=== PATIENT | male | born 1990 | race Caucasian/White ===

== ENCOUNTER 2023-01-11 01:55 | Outpatient (CLI) | payer BC, SELFPAY ==
--- OUTSIDE RECORDS SUMMARY | 2023-01-11 01:56 | XMS_ITS | Continuity of Care Document ---
Author Name Unknown Organization [facility] Address [address] [place] [address] Phone [phone] Care Team Providers Care Director Nicu Name Role Phone Indio Wood NP Care Team Information Recei geri Unavailable MARY ACOSTA MD Care Team Information Re ceiver Unavailable Indio Wood NP Primary Care Physician Unav ailable
[2023-01-11 12:46] LABS: Anion Gap 8.4 mmol/L (3-11); BUN 13 mg/dL (7-18); CO2 27.6 mmol/L (21.0-32.0); CREATININE 0.9 mg/dL (0.70-1.30); Calcium 9.6 mg/dL (8.5-10.1); Calculated LDL 146 mg/dL (<100); Chloride 103 mmol/L (98-107); Cholesterol 212 mg/dL (<200); Estimated GFR 116.37 (mL/min/1.73m2); Glucose 113 mg/dL (74-106); HDL Cholesterol 46 mg/dL (40-60); Potassium 4.2 mmol/L (3.5-5.1); Sodium 139 mmol/L (136-145); Triglyceride 102 mg/dL (<150)
[2023-01-11 12:50] LABS: Hemoglobin A1C 5.5 % (<5.7)
[2023-01-14 11:50] LABS: Testosterone, Total 327 ng/dL (240-950)
== END 2023-01-11 01:56 | disposition home or self-care (01) ==
LOC: LOS 01:55
PROVIDERS: PCP Nurse Practitioner Family; Visit Provider Nurse Practitioner Family
DX: E78.5 Hyperlipidemia, unspecified (principal); N52.9 Male erectile dysfunction, unspecified
CPT/HCPCS: 36415; 80048; 80061; 84403; 83036; 84443

== ENCOUNTER 2025-01-20 14:22 | Outpatient (CLI) | payer BC, SELFPAY ==
[2025-01-20 16:16] LABS: HCT 42.4 % (40.0-50.0); HGB 15.1 g/dL (13.5-17.5); MCH 30.6 pg (27.0-33.0); MCHC 35.6 % (32.0-36.0); MCV 86 fL (80-95); MPV 8.7 fL (8.0-11.0); Platelet Count 378 10^3/uL (130-400); RBC 4.94 10^6/uL (4.36-5.78); RDW 12.4 % (11.8-14.1); RDW-SD 38.6 fL; WBC 8.55 10^3/uL (4.4-10.8)
[2025-01-20 16:29] LABS: Hemoglobin A1C 5.5 % (<5.7)
[2025-01-20 17:04] LABS: ALT 45 U/L (16-63); AST 18 U/L (15-37); Albumin 4.2 g/dL (3.4-5.0); Alkaline Phosphatase 89 U/L (46-116); Anion Gap 9.7 mmol/L (3-11); BUN 16 mg/dL (7-18); Bilirubin, Total 0.5 mg/dL (0.2-1.0); CO2 29.3 mmol/L (21.0-32.0); Calcium 9.4 mg/dL (8.5-10.1); Calculated LDL 136 mg/dL (<100); Chloride 102 mmol/L (98-107); Cholesterol 217 mg/dL (<200); Estimated GFR 119.10 (mL/min/1.73m2); Glucose 115 mg/dL (74-106); HDL Cholesterol 45 mg/dL (>or=40); Potassium 3.9 mmol/L (3.5-5.1); Sodium 141 mmol/L (136-145); Total Protein 8.5 g/dL (6.4-8.2); Triglyceride 182 mg/dL (<150); Vitamin B12 670 pg/mL (193-986)
[2025-01-22 10:03] LABS: HBs Antibody, Quant 204.2 mIU/mL (See Note); Hepatitis B Surface Antigen Negative (Negative)
[2025-01-22 10:16] LABS: Hepatitis C Ab w Rflx HCV PCR Negative (Negative)
[2025-01-22 10:26] LABS: HIV-1/2 Ag & Ab Screen Negative (Negative)
== END 2025-01-20 14:23 | disposition home or self-care (01) ==
LOC: LOS 14:37
PROVIDERS: PCP Nurse Practitioner Family; Visit Provider Nurse Practitioner Family
DX: K21.9 Gastro-esophageal reflux disease without esophagitis (principal); G47.33 Obstructive sleep apnea (adult) (pediatric); E78.5 Hyperlipidemia, unspecified; Z11.59 Encounter for screening for other viral diseases; Z11.4 Encounter for screening for human immunodeficiency virus [HIV]
CPT/HCPCS: 36415; 80053; 80061; 85027; 86704; 86706; 86803; 87340; 87389; 82607; 83036